=== PATIENT | female | born 1995 | race Caucasian/White ===

== ENCOUNTER 2017-04-05 06:52 | Emergency (ER) | payer BC ==
[2017-04-05] MEDS ORDERED: Sodium Chloride 0.9% 1,000 ML IV ONE (07:28)
[2017-04-05] MEDS ORDERED: Sodium Chloride 0.9% 10 ML Syringe FLUSH PRN (07:28)
[2017-04-05] MEDS ORDERED: Sodium Chloride 0.9% 2.5 ML Syringe FLUSH PRN (07:28)
--- NOTE | 2017-04-05 07:28 | EDM.PDOC ---
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 On March 26 hormone level was 17,719 and on March 30 had fallen to 9,237. She had had a documented ultrasound performed on 03/26 showing an IUP but no pole or yolk sac. According to the patient she was told that she was having a miscarriage and they were going to continue to follow the hormone levels this week and make a decision. Up until this point she has had intermittent cramping and spotting but has not had to use a pad. This morning at 5:15 she started bleeding heavily and she is used to total of 5 pad so far. She still has the cramping. She is not lightheaded or dizzy and has not passed out and has no chest pain fever chills nausea vomiting or upper abdominal pain. She's been eating and drinking normally. She presents due to the change in the bleeding for evaluation. Patient states that she just feels overall fatigued and weak. Review of systems: As per history of present illness and below otherwise all systems reviewed and negative. Past medical history: As per history of present illness and as reviewed below otherwise noncontributory. Surgical history: As per history of present illness and as reviewed below otherwise noncontributory. Social history: No reported history of drug or alcohol abuse. Family history: As per history of present illness and as reviewed below otherwise noncontributory. Physical exam: Gen.: Well-developed well-nourished female who is nontoxic and vital signs have been reviewed by me occluding the tachycardia. HEENT: Atraumatic, normocephalic, negative for conjunctival pallor or scleral icterus, mucous membranes moist, throat clear, neck supple, nontender, trachea midline. Lungs: Clear to auscultation, breath sounds equal bilaterally, chest nontender. Heart: S1S2, regular rhythm and tachycardic rate on my evaluation, no overt murmurs Abdomen: Soft, nondistended, nontender. Negative for masses or hepatosplenomegaly. NABS. Pelvis: Stable nontender. Genitourinary: External genitalia are within normal limits and there is copious amount of clots visualized at the introitus. There is copious blood and clots in the vaginal vault and the cervix is incredibly posterior and to the patient' s left and the os is fingertip. Uterus is age-appropriate around 8 weeks and nontender and there is no adnexal tenderness Rectal: Deferred. Extremities: Atraumatic, negative for cords or calf pain. Neurovascular unremarkable. Neuro: Awake, alert, oriented. Cranial nerves II through XII unremarkable. Cerebellum unremarkable. Motor and sensory unremarkable throughout. Exam nonfocal. Diagnostics: CBC serum quantitative hCG orthostatic vitals pelvic ultrasound Patient has a documented O+ blood type on March 2016 in our computer Therapeutics: IV fluids On orthostatics the patient's heart rate did go up significantly with position change from supine to standing the blood pressure did not change. 0945: Patient has had significantly reduced bleeding since being in the ER and at present got up and walked around in the ER with nursing and she did not have any gross bleeding or oozing of blood and does not feel lightheaded or dizzy and the weakness that she felt earlier is improved. I will discuss this case with OB on-call, Dr. Linda 1004: Case was discussed with Dr. Linda and she is going to review the ultrasound herself and decide if the patient is a candidate for Cytotec. The patient and significant other at bedside are aware of this plan and that we are awaiting the OB MD's plan 1045: Dr. Linda has reviewed the ultrasound and feels that cytotec would be indicated in this patient and requested I put 800 g in the posterior fornix and also place her on doxycycline 100 by mouth twice a day for 7 days. Patient is aware of this care plan and she is also aware that she may have more bleeding before it stops and some cramping and she is to use [id number] medications for this. I advised her on reasons to return to the ED as well as need to contact [facility] tomorrow and check in. Impression: Incomplete stable Definitive disposition and diagnosis as appropriate pending reevaluation and review of above. Lower Abdomen Pain Score (Numeric/FACES): 4 - Related Data Allergies Allergy/AdvReac Type Severity Reaction Status Date / Time Sulfa (Sulfonamide Allergy Rash Verified 04/05/17 07:20 Antibiotics) Home Meds: Home Meds Vit #108/Iron/FA [ One Tablet] 04/05/17 [History] Past Medical History - Past Health History Medical/Surgical History: Denies Medical/Surgical History Social & Family History - Family History HEENT: Reports: Cataract Respiratory: Reports: Asthma Psychiatric: Reports: Depression Endocrine/Metabolic: Reports: Diabetes, type II Oncologic: Reports: Uterine - Tobacco Use Smoking Status *Q: Never Smoker - Caffeine Use Caffeine Use: Reports: Soda - Recreational Drug Use Recreational Drug Use: No ED ROS GENERAL - Review of Systems Review Of Systems: ROS reveals no pertinent complaints other than HPI. ED EXAM, GENERAL - Physical Exam Exam: See Below (See dictation) Course - Vital Signs Last Recorded V/S: Last Vital Signs Temp 36.4 C 04/05/17 07:38 Pulse 82 04/05/17 09:30 Resp 18 04/05/17 09:30 BP 116/68 04/05/17 09:30 Pulse Ox 98 04/05/17 09:30 Orthostatic Blood Pressure [ 113/63 Supine] Orthostatic Blood Pressure [ 116/63 Sitting] Orthostatic Blood Pressure [ 102/48 Standing] - Orders/Labs/Meds Orders: Active Orders 24 hr Category Date Time Status Orthostatic Vital Signs [RC] ASDIRECTED Care 04/05/17 07:55 Active Pelvis Non OB Comp [US] Stat Exams 04/05/17 07:56 Taken Sodium Chloride 0.9% [Saline Flush] Med 04/05/17 07:28 Active 10 ml FLUSH ASDIRECTED PRN Sodium Chloride 0.9% [Saline Flush] Med 04/05/17 07:28 Active 2.5 ml FLUSH ASDIRECTED PRN Saline Lock Insert [OM.PC] Stat Oth 04/05/17 07:28 Ordered Medication Orders Sodium Chloride (Saline Flush) 10 ml FLUSH ASDIRECTED PRN PRN Reason: Keep Vein Open Sodium Chloride (Saline Flush) 2.5 ml FLUSH ASDIRECTED PRN PRN Reason: Keep Vein Open Labs: Laboratory Tests 04/05/17 04/05/17 Range/Units 07:31 07:31 WBC 7.74 (4.0-11.0) K/uL RBC 4.39 (4.30-5.90) M/uL Hgb 12.6 (12.0-16.0) g/dL Hct 37.2 (36.0-46.0) % MCV 84.7 (80.0-98.0) fL MCH 28.7 (27.0-32.0) pg MCHC 33.9 (31.0-37.0) g/dL RDW Std Deviation 41.0 (28.0-62.0) fl RDW Coeff of Leoncio 13 (11.0-15.0) % Plt Count 248 (150-400) K/uL MPV 8.80 (7.40-12.00) fL Neut % (Auto) 61.1 (48.0-80.0) % Lymph % (Auto) 29.7 (16.0-40.0) % [place] % (Auto) 7.2 (0.0-15.0) % Eos % (Auto) 1.6 (0.0-7.0) % Baso % (Auto) 0.4 (0.0-1.5) % Neut # (Auto) 4.7 (1.4-5.7) K/uL Lymph # (Auto) 2.3 (0.6-2.4) K/uL [place] # (Auto) 0.6 (0.0-0.8) K/uL Eos # (Auto) 0.1 (0.0-0.7) K/uL Baso # (Auto) 0.0 (0.0-0.1) K/uL Nucleated RBC % 0.0 /100WBC Nucleated RBCs # 0 K/uL HCG, Quant 1993.4 mIU/mL Meds: Medications Generic Name Dose Route Start Last Admin Trade Name Freq PRN Reason Stop Dose Admin Sodium Chloride 10 ml 04/05/17 07:28 Saline Flush FLUSH ASDIRECTED PRN Keep Vein Open Sodium Chloride 2.5 ml 04/05/17 07:28 Saline Flush FLUSH ASDIRECTED PRN Keep Vein Open Discontinued Medications Generic Name Dose Route Start Last Admin Trade Name Freq PRN Reason Stop Dose Admin Sodium Chloride 1,000 mls @ 999 mls/hr 04/05/17 07:28 04/05/17 07:38 Normal Saline IV 04/05/17 08:28 999 mls/hr STAT ONE Administration Misoprostol 800 mcg 04/05/17 10:45 Cytotec VAG 04/05/17 10:46 ONETIME ONE Departure - Departure Time of Disposition: 10:51 Disposition: Home, Self-Care 01 Condition: Good Clinical Impression: Incomplete - Discharge Information Referrals: PCP,None [Primary Care Provider] - Forms: ED Department Discharge Additional Instructions: The following information is given to patients seen in the emergency department who are being discharged to home. This information is to outline your options for follow-up care. We provide all patients seen in our emergency department with a follow-up referral. The need for follow-up, as well as the timing and circumstances, are variable depending upon the specifics of your emergency department visit. If you don't have a primary care physician on staff, we will provide you with a referral. We always advise you to contact your personal physician following an emergency department visit to inform them of the circumstance of the visit and for follow-up with them and/or the need for any referrals to a consulting specialist. The emergency department will also refer you to a specialist when appropriate. This referral assures that you have the opportunity for followup care with a specialist. All of these measure are taken in an effort to provide you with optimal care, which includes your followup. Under all circumstances we always encourage you to contact your private physician who remains a resource for coordinating your care. When calling for followup care, please make the office aware that this follow-up is from your recent emergency room visit. If for any reason you are refused follow-up, please contact the [facility] emergency department at and ask to speak to the emergency department charge nurse. [facility] Primary care-Women's Health [address] [address] Push fluids rest and expect cramping and bleeding to continue for at least the next 24 hours. You should then see a decrease in both the cramping and bleeding. Please take antiviral Berhane prescribed and also contacted [facility] tomorrow and check in with her. Return to ER as needed as discussed - My Orders Last 24 Hours: My Active Orders 04/05/17 07:28 Sodium Chloride 0.9% [Saline Flush] 10 ml FLUSH ASDIRECTED PRN Sodium Chloride 0.9% [Saline Flush] 2.5 ml FLUSH ASDIRECTED PRN Saline Lock Insert [OM.PC] Stat 04/05/17 07:55 Orthostatic Vital Signs [RC] ASDIRECTED 04/05/17 07:56 Pelvis Non OB Comp [US] Stat - Assessment/Plan Last 24 Hours: My Active Orders 04/05/17 07:28 Sodium Chloride 0.9% [Saline Flush] 10 ml FLUSH ASDIRECTED PRN Sodium Chloride 0.9% [Saline Flush] 2.5 ml FLUSH ASDIRECTED PRN Saline Lock Insert [OM.PC] Stat 04/05/17 07:55 Orthostatic Vital Signs [RC] ASDIRECTED 04/05/17 07:56 Pelvis Non OB Comp [US] Stat
[2017-04-05] MEDS ORDERED: Misoprostol 50 MCG (1/2 of 100 MCG) Tab VAG ONE (10:45)
[2017-04-05] MEDS ORDERED: Misoprostol 200 MCG Tab VAG ONE (11:00)
[2017-04-05 11:35] VITALS: BP 123/67
--- NOTE | 2017-04-06 11:22 | US ---
EXAM DATE: 04/05/17 PATIENT'S AGE: 21 Patient: ALAYNA GARCIA Facility: [place], [place] Site . Site : 1996 Study: US Pelvis [id number] 9:30:27 AM Ordering Physician: Mikayla Galan Final Report: INDICATION: Evaluate for retained products of conception. FINDINGS: An endovaginal pelvic ultrasound shows normal size, contour, echogenicity of the uterus. Thickening of the endometrial stripe measuring 2.6 cm. Small, 7 mm, fluid collection in the endometrial canal which contains internal debris and adjacent increased blood flow. Trace free fluid in the endocervical canal. The ovaries are not well visualized. Trace free fluid in the pelvis. IMPRESSION: Thickening of the endometrial canal which contains a small fluid collection with adjacent increased blood flow. This may represent a small area of retained products of conception. Dictated by Po Urena MD @ 04/05/2017 9:48:24 AM Dictated by: Po Urena MD @ 04/05/2017 09:48:36 (Electronic Signature) Report Signed by Proxy. [facility]
== END 2017-04-05 11:38 | disposition home or self-care (01) ==
LOC: MW.ED 06:52
DX: O03.4 Incomplete spontaneous abortion without complication (principal); Z88.2 Allergy status to sulfonamides
CPT/HCPCS: 36415; 76856; 84702; 85025; 96360; 99284; A9270; J7040

== ENCOUNTER 2020-08-26 05:10 | Inpatient (IN) | payer BC ==
[2020-08-26] MEDS ORDERED: Tranexamic Acid 1,000 MG in Sodium Chloride 0.9% 100 ML IV PRN (05:43)
[2020-08-26] MEDS ORDERED: Ampicillin 2 GM in Sodium Chloride 0.9% 100 ML IV ONE (05:43)
[2020-08-26] MEDS ORDERED: Nalbuphine 10 MG/1 ML Vial IVPUSH PRN (05:43)
[2020-08-26] MEDS ORDERED: Sodium Chloride 0.9% 10 ML SDV IV PRN (05:43)
[2020-08-26] MEDS ORDERED: Sodium Chloride 0.9% 10 ML Syringe FLUSH PRN (05:43)
[2020-08-26] MEDS ORDERED: Water For Irrigation,Sterile 1,000 ML Container IRR PRN (05:43)
[2020-08-26] MEDS ORDERED: Methylergonovine 0.2 MG/1 ML Amp IM PRN (05:43)
[2020-08-26] MEDS ORDERED: Butorphanol 1 MG/ML SDV IVPUSH PRN (05:43)
[2020-08-26] MEDS ORDERED: Misoprostol 200 MCG Tab PO PRN (05:43)
[2020-08-26] MEDS ORDERED: Carboprost Tromethamine 250 MCG/1 ML Amp IM PRN (05:43)
[2020-08-26] MEDS ORDERED: Sodium Chloride 0.9% 2.5 ML Syringe FLUSH PRN (05:43)
[2020-08-26] MEDS ORDERED: Lidocaine 1% 50 ML MDV INJECT PRN (05:43)
[2020-08-26] MEDS ORDERED: Oxytocin/0.9 % Sodium Chloride 30 UNIT/500 ML BAG IV SCH ×3 (05:45→06:15)
[2020-08-26] MEDS ORDERED: Lactated Ringers 1,000 ML IV SCH (05:45)
[2020-08-26] MEDS ORDERED: Terbutaline 1 MG/ML SDV SUBCUT PRN (05:48)
[2020-08-26] MEDS ORDERED: Misoprostol 25 MCG (1/4 of 100 MCG) Tab VAG PRN ×2 (05:48)
[2020-08-26] MEDS ORDERED: Misoprostol 25 MCG (1/4 of 100 MCG) Tab PO PRN (06:04)
--- NOTE | 2020-08-26 08:02 | PCM.LDHP ---
L&D History of Present Illness - General Date of Service: 08/26/20 Admit Problem/Dx: Patient Status Order with Admit Dx/Problem 08/26/20 05:43 Patient Status [ADT] Routine Admission Diagnosis/Problem Admission Diagnosis/Problem 08/26/20 07:47 Malinda is a 25 yo at 41+0 weeks gestation (MARSHALL(LMP) 08/19/2020) that presents today for elective (now post-dates) IOL. Patient has not complaints or concerns at this time except irregular BHs contractions. O pos, Ab screen neg, RI, GBS positive. Ax: Sulfa drugs. Denies painful contractions, vaginal bleeding, LOF. Reports adequate movement. H/O obesity (1-hr GTT not collected, declined); insufficient care between 17-33 weeks (due to COVID per patient report); GBS positive (declines prophylactic antibiotics, extensive counseling completed). Patient has no other complaints or concerns at this time, desires to continue with IOL at this time. RBAs of IOL discussed and consents signed 08/24/2020; discussed and confirmed once again today. Source of Information: Patient History Limitations: Reports: No Limitations - Related Data Allergies/Adverse Reactions: Allergies Allergy/AdvReac Type Severity Reaction Status Date / Time Sulfa (Sulfonamide Allergy Rash Verified 05/07/18 06:00 Antibiotics) Home Medications: Home Meds Mv-Mn/Iron/FA/Herbal/Digestive [ One Tablet] 1 tab PO DAILY 04/05/17 [History] L.acidoph,Paracasei, B.lactis [Probiotic] 1 cap PO DAILY 05/07/18 [History] Past Medical History - Past Health History Medical/Surgical History: Denies Medical/Surgical History HEENT History: Reports: None Cardiovascular History: Reports: None Respiratory History: Reports: Asthma (Childhood asthma, resolved) Gastrointestinal History: Reports: None Genitourinary History: Reports: None 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: , Spontaneous : 4 Para: 2 LMP (Approximate): Musculoskeletal History: Reports: None Neurological History: Reports: None Psychiatric History: Reports: Anxiety Endocrine/Metabolic History: Reports: Obesity/BMI 30+ Hematologic History: Reports: None Immunologic History: Reports: None Oncologic (Cancer) History: Reports: None Dermatologic History: Reports: None - Infectious Disease History Infectious Disease History: Reports: None - Past Surgical History Head Surgeries/Procedures: Reports: None - Past Imaging History Past Imaging History: Reports: None Social & Family History - Family History HEENT: Reports: Cataract Cardiac: Reports: Hypertension Respiratory: Reports: Asthma OBGYN: Reports: Psychiatric: Reports: Depression Endocrine/Metabolic: Reports: Diabetes, type II Oncologic: Reports: Uterine Other Oncologic Family History: stomach - Tobacco Use Tobacco Use Status *Q: Never Tobacco User - Caffeine Use Caffeine Use: Reports: Soda - Alcohol Use Alcohol Use History: No - Recreational Drug Use Recreational Drug Use: No H&P Review of Systems - Review of Systems: Review Of Systems: Comprehensive ROS is negative, except as noted in HPI. General: Reports: No Symptoms HEENT: Reports: No Symptoms Pulmonary: Reports: No Symptoms Cardiovascular: Reports: No Symptoms Gastrointestinal: Reports: No Symptoms Genitourinary: Reports: No Symptoms Musculoskeletal: Reports: No Symptoms Skin: Reports: No Symptoms Psychiatric: Reports: No Symptoms Neurological: Reports: No Symptoms Hematologic/Lymphatic: Reports: No Symptoms Immunologic: Reports: No Symptoms L&D Exam - Exam Exam: See Below - Vital Signs Vital Signs: BP 117/67, HR 83, RR 16, T 98.3 Weight: 276 lb 3 oz - OB Specific Fundal Height In cm: 42 Contraction Duration (sec): 60-70 Contraction Frequency (min): occasional Contraction Intensity: Mild Movement: Active Heart Tones: Present Heart Tones per Min: 125 Heart Rate (FHR) Variability: Moderate (6-25 bmp) Presentation: Vertex (Vertex via TAUS in office 08/24/2020, SVE today) - Evans Score Evans Score Cervix Position: Midposition Evans Score Consistency: Soft Evans Score Effacement: 51-70% Evans Score Dilation: 3-4 cm Evans Score 's Station: -2 Evans Score Total: 8 - Exam General: Alert, Oriented, Cooperative HEENT: PERRLA, Conjunctiva Clear, EACs Clear, EOMI, Hearing Intact, Mucosa Moist & [place], Nares Patent, Normal Nasal Septum, Posterior Pharynx Clear, TMs Clear Neck: Supple, Trachea Midline Lungs: Clear to Auscultation, Normal Respiratory Effort Cardiovascular: Regular Rate, Regular Rhythm GI/Abdominal Exam: Normal Bowel Sounds, Soft, Non-Tender, No Organomegaly, No Distention Rectal Exam: Deferred Genitourinary: Normal external exam, Normal bimanual exam, Enlarged uterus ( uterus) Back Exam: Normal Inspection, Full Range of Motion Extremities: Normal Inspection, Normal Range of Motion, Non-Tender, No Pedal Edema, Normal Capillary Refill Skin: Warm, Dry, Intact Neurological: Cranial Nerves Intact, Reflexes Equal Bilateral Psychiatric: Alert, Normal Affect, Normal Mood - Patient Data Lab Results Last 24 hrs: Laboratory Results - last 24 hr 08/26/20 08/26/20 Range/Units 06:29 06:29 WBC 7.94 (4.0-11.0) K/uL RBC 4.02 L (4.30-5.90) M/uL Hgb 11.4 L (12.0-16.0) g/dL Hct 34.8 L (36.0-46.0) % MCV 86.6 (80.0-98.0) fL MCH 28.4 (27.0-32.0) pg MCHC 32.8 (31.0-37.0) g/dL RDW Std Deviation 50.9 (28.0-62.0) fl RDW Coeff of Leoncio 16 H (11.0-15.0) % Plt Count 257 (150-400) K/uL MPV 9.40 (7.40-12.00) fL Nucleated RBC % 0.0 /100WBC Nucleated RBCs # 0 K/uL Blood Type O POSITIVE Antibody Screen NEGATIVE Result Diagrams: 08/26/20 06:29 - Problem List (1) Encounter for induction of labor SNOMED Code(s): 795522935 ICD Code: Z34.90 - ENCNTR FOR SUPRVSN OF NORMAL , UNSP, UNSP TRIMESTER Status: Acute Priority: High Current Visit: Yes (2) 41 weeks gestation of SNOMED Code(s): 91447556 ICD Code: Z3A.41 - 41 WEEKS GESTATION OF Status: Acute Priority: High Current Visit: Yes Problem List Initiated/Reviewed/Updated: Yes Orders Last 24hrs: Active Orders 24 hr Category Date Time Status Patient Status [ADT] Routine ADT 08/26/20 05:43 Active Bedrest Bathroom Privileges [RC] ASDIRECTED Care 08/26/20 05:49 Active Communication Order [RC] ASDIRECTED Care 08/26/20 05:49 Active Communication Order [RC] ASDIRECTED Care 08/26/20 05:49 Active Communication Order [RC] ASDIRECTED Care 08/26/20 05:49 Active Heart Tones [RC] CONTINUOUS Care 08/26/20 05:43 Active Non Stress Test [RC] PER UNIT ROUTINE Care 08/26/20 05:43 Active May Shower [RC] ASDIRECTED Care 08/26/20 05:43 Active Notify Provider [RC] PRN Care 08/26/20 05:43 Active Notify Provider [RC] PRN Care 08/26/20 05:49 Active Notify Provider [RC] PRN Care 08/26/20 05:49 Active Notify Provider [RC] STAT Care 08/26/20 05:49 Active Oxygen Therapy [RC] ASDIRECTED Care 08/26/20 05:49 Active Up ad Jelly [RC] ASDIRECTED Care 08/26/20 05:43 Active Vaginal Exam [RC] PRN Care 08/26/20 05:43 Active Vaginal Exam [RC] PRN Care 08/26/20 05:49 Active Vital Signs [RC] PER UNIT ROUTINE Care 08/26/20 05:43 Active Vital Signs [RC] PER UNIT ROUTINE Care 08/26/20 05:49 Active RPR (SYPHILIS SERO) W/ RFLX [REF] Routine Lab 08/26/20 06:29 Received Ampicillin 1 gm Med 08/26/20 10:00 Active Sodium Chloride 0.9% [Normal Saline] 50 ml IV Q4H Butorphanol [Stadol] Med 08/26/20 05:43 Active 1 mg IVPUSH Q1H PRN Carboprost Tromethamine [Hemabate DS] Med 08/26/20 05:43 Active 250 mcg IM ASDIRECTED PRN Lactated Ringers [Ringers, Lactated] 1,000 ml Med 08/26/20 05:45 Active IV ASDIRECTED Lidocaine 1% [Xylocaine 1%] Med 08/26/20 05:43 Active 50 ml INJECT ONETIME PRN Methylergonovine [Methergine] Med 08/26/20 05:43 Active 0.2 mg IM ASDIRECTED PRN Nalbuphine [Nubain] Med 08/26/20 05:43 Active 10 mg IVPUSH Q1H PRN Oxytocin/0.9 % Sodium Chloride [Oxytocin 30 Unit/500 ML Med 08/26/20 05:45 Active -NS] 30 unit in 500 ml IV TITRATE Oxytocin/0.9 % Sodium Chloride [Oxytocin 30 Unit/500 ML Med 08/26/20 06:00 Act lila -NS] 30 unit in 500 ml IV TITRATE Oxytocin/0.9 % Sodium Chloride [Oxytocin 30 Unit/500 ML Med 08/26/20 06:15 Active -NS] 30 unit in 500 ml IV TITRATE Sodium Chloride 0.9% [Normal Saline] Med 08/26/20 05:43 Active 10 ml IV ASDIRECTED PRN Sodium Chloride 0.9% [Saline Flush] Med 08/26/20 05:43 Active 10 ml FLUSH ASDIRECTED PRN Sodium Chloride 0.9% [Saline Flush] Med 08/26/20 05:43 Active 2.5 ml FLUSH ASDIRECTED PRN Terbutaline [Brethine] Med 08/26/20 05:48 Active 0.25 mg SUBCUT ASDIRECTED PRN Tranexamic Acid [Cyklokapron] 1,000 mg Med 08/26/20 05:43 Active Sodium Chloride 0.9% [Normal Saline] 100 ml IV ONETIME Water For Irrigation,Sterile [Sterile Water for Med 08/26/20 05:43 Active Irrigation] 1,000 ml IRR ASDIRECTED PRN miSOPROStoL [Cytotec] Med 08/26/20 05:43 Active 200 mcg PO ONETIME PRN miSOPROStoL [Cytotec] Med 08/26/20 06:04 Active 25 mcg PO Q4H PRN miSOPROStoL [Cytotec] Med 08/26/20 05:48 Active 25 mcg VAG ONETIME PRN miSOPROStoL [Cytotec] Med 08/26/20 05:48 Active 25 mcg VAG Q4H PRN Scalp Electrode [WOMSER] Per Unit Routine Oth 08/26/20 05:43 Ordered Medication Administration Instruction [OM.PC] Q3H Oth 08/26/20 06:00 Ordered Peripheral IV Insertion Adult [OM.PC] Routine Oth 08/26/20 05:43 Ordered Resuscitation Status Routine Resus Stat 08/26/20 05:43 Ordered Medication Orders Butorphanol Tartrate (Stadol) 1 mg IVPUSH Q1H PRN PRN Reason: Pain Carboprost Tromethamine (Hemabate Ds) 250 mcg IM ASDIRECTED PRN PRN Reason: Post Hemorrhage Oxytocin/Sodium Chloride (Oxytocin 30 Unit/500 Ml-Ns) 30 unit in 500 mls @ 999 mls/hr IV TITRATE ANGIE Tranexamic Acid 1,000 mg/ (Sodium Chloride) 110 mls @ 660 mls/hr IV ONETIME PRN PRN Reason: Bleeding Lactated Ringer's (Ringers, Lactated) 1,000 mls @ 150 mls/hr IV ASDIRECTED ANGIE Ampicillin Sodium 1 gm/ Sodium (Chloride) 50 mls @ 100 mls/hr IV Q4H ANGIE Oxytocin/Sodium Chloride (Oxytocin 30 Unit/500 Ml-Ns) 30 unit in 500 mls @ 2 mls/hr IV TITRATE ANGIE; Protocol Oxytocin/Sodium Chloride (Oxytocin 30 Unit/500 Ml-Ns) 30 unit in 500 mls @ 2 mls/hr IV TITRATE ANGIE; Protocol Lidocaine HCl (Xylocaine 1%) 50 ml INJECT ONETIME PRN PRN Reason: Laceration repair Methylergonovine Maleate (Methergine) 0.2 mg IM ASDIRECTED PRN PRN Reason: Post Hemorrhage Misoprostol (Cytotec) 200 mcg PO ONETIME PRN PRN Reason: Post Hemorrhage Misoprostol (Cytotec) 25 mcg VAG ONETIME PRN PRN Reason: Cervical Ripening Misoprostol (Cytotec) 25 mcg VAG Q4H PRN PRN Reason: Cervical Ripening Misoprostol (Cytotec) 25 mcg PO Q4H PRN PRN Reason: Cervical Ripening Nalbuphine HCl (Nubain) 10 mg IVPUSH Q1H PRN PRN Reason: Pain (severe 7-10) Sodium Chloride (Saline Flush) 10 ml FLUSH ASDIRECTED PRN PRN Reason: Keep Vein Open Sodium Chloride (Saline Flush) 2.5 ml FLUSH ASDIRECTED PRN PRN Reason: Keep Vein Open Sodium Chloride (Normal Saline) 10 ml IV ASDIRECTED PRN PRN Reason: IV Use Sterile Water (Sterile Water For Irrigation) 1,000 ml IRR ASDIRECTED PRN PRN Reason: delivery Terbutaline Sulfate (Brethine) 0.25 mg SUBCUT ASDIRECTED PRN PRN Reason: Tacysystole Assessment/Plan Comment:: Admit for observation to L&D today in anticipation of . Desire AROM IOL today. RBAs of AROM vs prostaglandin vs pitocin IOL discussed. Patient desires AROM at this time for IOL. GBS positive. Ax: Sulfa drugs. Patient continues to decline GBS prophylactic antibiotics, extensive and intrapartum counseling completed. Warning S/Ss, when to re-visit antibiotic prophylaxis including maternal or tachycardia, maternal fever, NRFHTs, or prolongs ROM >/=18 hours discussed. Patient verbalizes understanding and is agreeable with POC. Plan to monitor maternal temperature q 1-2 hrs, limit SVEs to q 4-6 hours or sooner if needed. Plan for pitocin augmentation in 4-6 hours S/P AROM if needed. VSS, afebrile. NST Cat I, reactive and reassuring. SVE 3/50-70/-2, soft, midposition, vertex. AROM completed at 0715, scant to small, clear fluid. Plan to obtain reactive NST, then patient may ambulate intermittently with intermittent monitoring per policy. May receive epidural if desired >/= 5 cm. May have regular diet as tolerated. See new orders. Dr. Simmons notified and agreeable with POC, plans to be present on unit during delivery or sooner if problems arise.
[2020-08-26] MEDS: Ampicillin 1 GM in Sodium Chloride 0.9% 50 ML IV SCH ×2 (10:00→14:00)
--- NOTE | 2020-08-26 13:47 | PCM.DEL ---
L & D Note - General Info Date of Service: 08/26/20 Mother's Due Date: 08/19/20 - Delivery Note Labor: Induced by ARM Delivery Outcome: Livebirth Infant Delivery Method: Spontaneous Vaginal Delivery-Single Delivery Mode: Spontaneous Presentation: Right Occiput Anterior (FELICITY) Nuchal Cord: Present (Somersaulted through) Anesthesia Type: None Amniotic Fluid Description: Clear Episiotomy Type: None Laceration: 1st Degree (Oozing, not repaired per patient request, iced and pressure applied) Placenta: Intact, Spontaneous Cord: 3 Vessels Resuscitation Needed: No Kirby: Bulb Syringe, Stimulated, Warmed, [place] Used Score 1 min: 8 Score 5 min: 9 Second Stage Interventions: Reports: Encouragement Given, Pushing Effectively, Pushing Involuntarily, Pushing, Feet in Foot Rests Delivery Comments (Free Text/Narrative):: Malinda is a 25 yo s/p uncomplicated of viable, post-term NBF at 41+0 weeks gestation (MARSHALL(LMP) 08/19/2020) after elective (now post-dates) IOL with AROM induction. O pos, Ab screen neg, RI, GBS positive. Ax: Sulfa drugs. Declined prophylactic antibiotics, extensive and intrapartum counseling completed; low-risk due to lack of other factors, Tmax: 98.6F. Pain well controlled with comfort measures, unmedicated. Dr. Simmons and development educator on stand-by in unit. NBF delivered FELICITY with tight nuchal, somersaulted through with next push and of body, terminal meconium. NBF placed to maternal abdomen, warmed, dried, stimulated, weak cries thereafter. Umbilical cord clamped x 2, cut by FOB ~1-2 min after . Pitocin bolus commenced for active third stage management. Placenta delivered intact, Sch[place], 3VC; incidental cyst x3 ~1 cm in diameter each and calcifications noted on placenta upon inspection, consistent for gestational age. Perineum inspected, small 1st degree perineal laceration, somewhat oozing after pressure applied noted, not repaired per patient request, ice and compress (high-seated position). If oozing not resolved in 1 hour, plan to repair with local lidocaine analgesia. EBL ~400 ml. Apgars 8/9. NBF weight pending. VSS, afebrile. Induction Criteria - Evans Score Evans Score Dilation: 3-4 cm Evans Score Effacement: 60-70% Evans Score 's Station: -2 Evans Score Consistency: Soft Evans Score Cervix Position: Midposition Evans Score Total: 8 Evans Score Presenting Part: Reports: Cephalic - Induction Gestational Age >/= 39 wks: Yes Estimated Pelvis: Reports: Adequate Reassuring Monitoring Strip: Yes Absence of Tachy Systole: Yes - General Info Date of Service: 08/26/20 Admission Dx/Problem (Free Text): Patient Status Order with Admit Dx/Problem 08/26/20 05:43 Patient Status [ADT] Routine Admission Diagnosis/Problem Admission Diagnosis/Problem 08/26/20 07:47 Malinda is a 25 yo at 41+0 weeks gestation (MARSHALL(LMP) 08/19/2020) that presents today for elective (now post-dates) IOL. Patient has not complaints or concerns at this time except irregular BHs contractions. O pos, Ab screen neg, RI, GBS positive. Ax: Sulfa drugs. Denies painful contractions, vaginal bleeding, LOF. Reports adequate movement. H/O obesity (1-hr GTT not collected, declined); insufficient care between 17-33 weeks (due to COVID per patient report); GBS positive (declines prophylactic antibiotics, extensive counseling completed). Patient has no other complaints or concerns at this time, desires to continue with IOL at this time. RBAs of IOL discussed and consents signed 08/24/2020; discussed and confirmed once again today. Functional Status: Reports: Pain Controlled, Tolerating Diet, Ambulating, Urinating - Review of Systems General: Reports: No Symptoms HEENT: Reports: No Symptoms Pulmonary: Reports: No Symptoms Cardiovascular: Reports: No Symptoms Gastrointestinal: Reports: No Symptoms Genitourinary: Reports: No Symptoms Musculoskeletal: Reports: No Symptoms Skin: Reports: No Symptoms Neurological: Reports: No Symptoms Psychiatric: Reports: No Symptoms - Patient Data Vitals - Most Recent: VSS, afebrile. See flowsheet. Weight - Most Recent: 276 lb 3 oz Lab Results Last 24 Hours: Laboratory Results - last 24 hr 08/26/20 08/26/20 08/26/20 Range/Units 06:29 06:29 06:29 WBC 7.94 (4.0-11.0) K/uL RBC 4.02 L (4.30-5.90) M/uL Hgb 11.4 L (12.0-16.0) g/dL Hct 34.8 L (36.0-46.0) % MCV 86.6 (80.0-98.0) fL MCH 28.4 (27.0-32.0) pg MCHC 32.8 (31.0-37.0) g/dL RDW Std Deviation 50.9 (28.0-62.0) fl RDW Coeff of Leoncio 16 H (11.0-15.0) % Plt Count 257 (150-400) K/uL MPV 9.40 (7.40-12.00) fL Nucleated RBC % 0.0 /100WBC Nucleated RBCs # 0 K/uL Glucose 96 (74-106) mg/dL Blood Type O POSITIVE Antibody Screen NEGATIVE Med Orders - Current: Current Medications Butorphanol Tartrate (Stadol) 1 mg IVPUSH Q1H PRN PRN Reason: Pain Carboprost Tromethamine (Hemabate Ds) 250 mcg IM ASDIRECTED PRN PRN Reason: Post Hemorrhage Oxytocin/Sodium Chloride (Oxytocin 30 Unit/500 Ml-Ns) 30 unit in 500 mls @ 999 mls/hr IV TITRATE ANGIE Tranexamic Acid 1,000 mg/ (Sodium Chloride) 110 mls @ 660 mls/hr IV ONETIME PRN PRN Reason: Bleeding Lactated Ringer's (Ringers, Lactated) 1,000 mls @ 150 mls/hr IV ASDIRECTED ANGIE Ampicillin Sodium 1 gm/ Sodium (Chloride) 50 mls @ 100 mls/hr IV Q4H ANGIE Oxytocin/Sodium Chloride (Oxytocin 30 Unit/500 Ml-Ns) 30 unit in 500 mls @ 2 mls/hr IV TITRATE ANGIE; Protocol Oxytocin/Sodium Chloride (Oxytocin 30 Unit/500 Ml-Ns) 30 unit in 500 mls @ 2 mls/hr IV TITRATE ANGIE; Protocol Lidocaine HCl (Xylocaine 1%) 50 ml INJECT ONETIME PRN PRN Reason: Laceration repair Methylergonovine Maleate (Methergine) 0.2 mg IM ASDIRECTED PRN PRN Reason: Post Hemorrhage Misoprostol (Cytotec) 200 mcg PO ONETIME PRN PRN Reason: Post Hemorrhage Misoprostol (Cytotec) 25 mcg VAG ONETIME PRN PRN Reason: Cervical Ripening Misoprostol (Cytotec) 25 mcg VAG Q4H PRN PRN Reason: Cervical Ripening Misoprostol (Cytotec) 25 mcg PO Q4H PRN PRN Reason: Cervical Ripening Nalbuphine HCl (Nubain) 10 mg IVPUSH Q1H PRN PRN Reason: Pain (severe 7-10) Sodium Chloride (Saline Flush) 10 ml FLUSH ASDIRECTED PRN PRN Reason: Keep Vein Open Sodium Chloride (Saline Flush) 2.5 ml FLUSH ASDIRECTED PRN PRN Reason: Keep Vein Open Sodium Chloride (Normal Saline) 10 ml IV ASDIRECTED PRN PRN Reason: IV Use Sterile Water (Sterile Water For Irrigation) 1,000 ml IRR ASDIRECTED PRN PRN Reason: delivery Terbutaline Sulfate (Brethine) 0.25 mg SUBCUT ASDIRECTED PRN PRN Reason: Tacysystole Discontinued Medications Ampicillin Sodium 2 gm/ Sodium (Chloride) 100 mls @ 200 mls/hr IV ONETIME ONE Stop: 08/26/20 06:12 Last Admin: 08/26/20 07:57 Dose: Not Given Documented by: - Exam General: Alert, Oriented, Cooperative, No Acute Distress HEENT: Pupils Equal, Pupils Reactive, Mucous Membr. Moist/[place] Neck: Supple Lungs: Clear to Auscultation, Normal Respiratory Effort Cardiovascular: Regular Rate, Regular Rhythm GI/Abdominal Exam: Normal Bowel Sounds, Soft, Non-Tender, No Organomegaly, No Distention (Female) Exam: Normal External Exam, Enlarged Uterus ( uterus, firm U+1), Vaginal Bleeding (Small to moderate rubra lochia, no clots) Back Exam: Normal Inspection, Full Range of Motion Extremities: Normal Inspection, Normal Range of Motion, Non-Tender, No Pedal Edema, Normal Capillary Refill Skin: Warm, Dry, Intact Wound/Incisions: Drainage (1st degree laceration: Scant to small blood, oozing.) Neurological: No New Focal Deficit Psy/Mental Status: Alert, Normal Affect, Normal Mood - Problem List & Annotations (1) (normal spontaneous vaginal delivery) SNOMED Code(s): 52831990, 868994867 Code(s): O80 - ENCOUNTER FOR FULL-TERM UNCOMPLICATED DELIVERY Status: Acute Priority: High Current Visit: Yes (2) Lactating mother SNOMED Code(s): 914733990, 857935742 Code(s): Z39.1 - ENCOUNTER FOR CARE AND EXAMINATION OF LACTATING MOTHER Status: Acute Priority: High Current Visit: Yes - Problem List Review Problem List Initiated/Reviewed/Updated: Yes - My Orders Last 24 Hours: My Active Orders 08/26/20 05:48 Terbutaline [Brethine] 0.25 mg SUBCUT ASDIRECTED PRN miSOPROStoL [Cytotec] 25 mcg VAG ONETIME PRN miSOPROStoL [Cytotec] 25 mcg VAG Q4H PRN 08/26/20 05:49 Bedrest Bathroom Privileges [RC] ASDIRECTED Notify Provider [RC] PRN Notify Provider [RC] PRN Notify Provider [RC] STAT Vital Signs [RC] PER UNIT ROUTINE 08/26/20 06:00 Oxytocin/0.9 % Sodium Chloride [Oxytocin 30 Unit/500 ML-NS] 30 unit in 500 ml IV TITRATE Medication Administration Instruction [OM.PC] Q3H 08/26/20 06:04 miSOPROStoL [Cytotec] 25 mcg PO Q4H PRN 08/26/20 06:15 Oxytocin/0.9 % Sodium Chloride [Oxytocin 30 Unit/500 ML-NS] 30 unit in 500 ml IV TITRATE - Plan Plan:: Admit inpatient to unit s/p uncomplicated of post-dates NBF following AROM IOL. GBS positive. Ax: Sulfa drugs. GBS prophylactic antibiotics not administered due to patient declining, no other exacerbating risk factors, intrapartum VSS, afebrile, Tmax 98.6 F, maternal HR 80s-90s, FHR 130s-150s, AROMd ~6 hrs 5 min, clear, non-odorous fluid. May ambulate with assistance, plan to ambulate at least 3-5 times per day. If patient has not voided in 4-6 hours, plan to bladder scan and notify provider. Plan to EBF, may consult revenue cycle consultant if needed or desired. Plan to collect CBC with auto diff in am. See new orders. Dr. Simmons notified and agreeable with POC.
[2020-08-26] MEDS ORDERED: Docusate Sodium 100 MG Cap PO PRN (14:15)
[2020-08-26] MEDS ORDERED: Benzocaine/Menthol 20%-0.5% Spray 78 GM Cannister TOP PRN (14:15)
[2020-08-26] MEDS ORDERED: Witch Hazel Medicated Pads 40/Jar TOP PRN (14:15)
[2020-08-26] MEDS ORDERED: Lanolin 100% Cream 7 GM Tube TOP PRN (14:15)
[2020-08-26] MEDS ORDERED: Bisacodyl 10 MG Supp RECTAL PRN (14:15)
[2020-08-26] MEDS ORDERED: Acetaminophen 500 MG Tab PO PRN ×2 (14:15)
[2020-08-26] MEDS ORDERED: Ibuprofen 400 MG Tab PO PRN (14:15)
[2020-08-26] MEDS ORDERED: oxyCODONE 5 MG Tab PO PRN (14:15)
[2020-08-26] MEDS: Ibuprofen 800 MG Tab PO PRN ×2 (14:57→21:11)
[2020-08-27] MEDS: Ibuprofen 800 MG Tab PO PRN ×3 (03:04→15:57)
--- NOTE | 2020-08-27 08:25 | PCM.PNPP ---
- General Info Date of Service: 08/27/20 Admission Dx/Problem (Free Text): Patient Status Order with Admit Dx/Problem 08/26/20 05:43 Patient Status [ADT] Routine Admission Diagnosis/Problem Admission Diagnosis/Problem 08/26/20 07:47 Malinda is a 25 yo PPD 0 S/P uncomplicated of viable post-dates NBF at 41+0 weeks gestation (MARSHALL(LMP) 08/19/2020) following elective (now post-dates) AROM IOL. O pos, Ab screen neg, RI, GBS positive. Ax: Sulfa drugs. GBS prophylactic antibiotics not administered due to patient declining, no other exacerbating risk factors, intrapartum VSS, afebrile, Tmax 98.6 F, maternal HR 80s-90s, FHR 130s-150s, AROMd ~6 hrs 5 min, clear, non-odorous fluid. VSS, afebrile. easily and without issues, LGA, glucose monitoring continued. Eating, hydrating, ambulating, and urinating independently and without issue. 1st degree perineal laceration noted, not repaired, declines inspection today. Uterus firm, @U. Moderate rubra lochia, few small clots. Mild to moderate uterine cramping somewhat relieved with ibuprofen and acetaminophen. H/O obesity (1-hr GTT not collected, declined); insufficient care between 17-33 weeks (due to COVID per patient report ); GBS positive (declined prophylaxis). Patient has no other questions or concerns at this time. Functional Status: Reports: Pain Controlled, Tolerating Diet, Ambulating, Ur inating - Review of Systems General: Reports: No Symptoms HEENT: Reports: No Symptoms Pulmonary: Reports: No Symptoms Cardiovascular: Reports: No Symptoms Gastrointestinal: Reports: No Symptoms Genitourinary: Reports: No Symptoms Musculoskeletal: Reports: No Symptoms Skin: Reports: No Symptoms Neurological: Reports: No Symptoms Psychiatric: Reports: No Symptoms - General Info Date of Service: 08/27/20 - Patient Data Vital Signs - Most Recent: Last Vital Signs Temp 98.1 F 08/27/20 03:14 Pulse 78 08/26/20 19:50 Resp 15 08/27/20 03:14 BP 114/66 08/27/20 03:14 Pulse Ox 99 08/27/20 03:14 Weight - Most Recent: 276 lb 3 oz Lab Results - Last 24 Hours: Laboratory Results - last 24 hr 08/26/20 08/27/20 Range/Units 06:29 07:00 WBC 11.87 H (4.0-11.0) K/uL RBC 3.78 L (4.30-5.90) M/uL Hgb 10.8 L (12.0-16.0) g/dL Hct 32.9 L (36.0-46.0) % MCV 87.0 (80.0-98.0) fL MCH 28.6 (27.0-32.0) pg MCHC 32.8 (31.0-37.0) g/dL RDW Std Deviation 51.7 (28.0-62.0) fl RDW Coeff of Leoncio 16 H (11.0-15.0) % Plt Count 237 (150-400) K/uL MPV 9.40 (7.40-12.00) fL Neut % (Auto) 65.6 (48.0-80.0) % Lymph % (Auto) 25.1 (16.0-40.0) % [place] % (Auto) 7.8 (0.0-15.0) % Eos % (Auto) 1.3 (0.0-7.0) % Baso % (Auto) 0.2 (0.0-1.5) % Neut # (Auto) 7.8 H (1.4-5.7) K/uL Lymph # (Auto) 3.0 H (0.6-2.4) K/uL [place] # (Auto) 0.9 H (0.0-0.8) K/uL Eos # (Auto) 0.2 (0.0-0.7) K/uL Baso # (Auto) 0.0 (0.0-0.1) K/uL Nucleated RBC % 0.0 /100WBC Nucleated RBCs # 0 K/uL Glucose 96 (74-106) mg/dL Med Orders - Current: Current Medications Acetaminophen (Tylenol Extra Strength) 500 mg PO Q4H PRN PRN Reason: Pain Acetaminophen (Tylenol Extra Strength) 1,000 mg PO Q4H PRN PRN Reason: Pain Benzocaine/Menthol (Dermoplast Pain Relief 20%-0.5% [place]) 78 gm TOP ASDIRECTED PRN PRN Reason: Perineal Comfort Measure Bisacodyl (Dulcolax) 10 mg RECTAL ONETIME PRN PRN Reason: Constipation Docusate Sodium (Colace) 100 mg PO BID PRN PRN Reason: Constipation Emollient Ointment (Lansinoh Hpa) 0 gm TOP ASDIRECTED PRN PRN Reason: Sore Nipples Ibuprofen (Motrin) 400 mg PO Q4H PRN PRN Reason: Pain Ibuprofen (Motrin) 800 mg PO Q6H PRN PRN Reason: Pain Last Admin: 08/27/20 03:04 Dose: 800 mg Documented by: Oxycodone HCl (Oxycodone) 5 mg PO Q2H PRN PRN Reason: Pain Witch Lauren (Tucks) 1 pad TOP ASDIRECTED PRN PRN Reason: comfort care Discontinued Medications Butorphanol Tartrate (Stadol) 1 mg IVPUSH Q1H PRN PRN Reason: Pain Carboprost Tromethamine (Hemabate Ds) 250 mcg IM ASDIRECTED PRN PRN Reason: Post Hemorrhage Oxytocin/Sodium Chloride (Oxytocin 30 Unit/500 Ml-Ns) 30 unit in 500 mls @ 999 mls/hr IV TITRATE [facility] Last Admin: 08/26/20 13:21 Dose: 999 mls/hr Documented by: Tranexamic Acid 1,000 mg/ (Sodium Chloride) 110 mls @ 660 mls/hr IV ONETIME PRN PRN Reason: Bleeding Ampicillin Sodium 2 gm/ Sodium (Chloride) 100 mls @ 200 mls/hr IV ONETIME ONE Stop: 08/26/20 06:12 Last Admin: 08/26/20 07:57 Dose: Not Given Documented by: Lactated Ringer's (Ringers, Lactated) 1,000 mls @ 150 mls/hr IV ASDIRECTED ANGIE Ampicillin Sodium 1 gm/ Sodium (Chloride) 50 mls @ 100 mls/hr IV Q4H [facility] Last Admin: 08/26/20 14:00 Dose: Not Given Documented by: Oxytocin/Sodium Chloride (Oxytocin 30 Unit/500 Ml-Ns) 30 unit in 500 mls @ 2 mls/hr IV TITRATE [facility]; Protocol Oxytocin/Sodium Chloride (Oxytocin 30 Unit/500 Ml-Ns) 30 unit in 500 mls @ 2 mls/hr IV TITRATE ANGIE; Protocol Lidocaine HCl (Xylocaine 1%) 50 ml INJECT ONETIME PRN PRN Reason: Laceration repair Methylergonovine Maleate (Methergine) 0.2 mg IM ASDIRECTED PRN PRN Reason: Post Hemorrhage Misoprostol (Cytotec) 200 mcg PO ONETIME PRN PRN Reason: Post Hemorrhage Misoprostol (Cytotec) 25 mcg VAG ONETIME PRN PRN Reason: Cervical Ripening Misoprostol (Cytotec) 25 mcg VAG Q4H PRN PRN Reason: Cervical Ripening Misoprostol (Cytotec) 25 mcg PO Q4H PRN PRN Reason: Cervical Ripening Nalbuphine HCl (Nubain) 10 mg IVPUSH Q1H PRN PRN Reason: Pain (severe 7-10) Sodium Chloride (Saline Flush) 10 ml FLUSH ASDIRECTED PRN PRN Reason: Keep Vein Open Sodium Chloride (Saline Flush) 2.5 ml FLUSH ASDIRECTED PRN PRN Reason: Keep Vein Open Sodium Chloride (Normal Saline) 10 ml IV ASDIRECTED PRN PRN Reason: IV Use Sterile Water (Sterile Water For Irrigation) 1,000 ml IRR ASDIRECTED PRN PRN Reason: delivery Terbutaline Sulfate (Brethine) 0.25 mg SUBCUT ASDIRECTED PRN PRN Reason: Tacysystole - Interaction Infant Disposition, : [place] in Room with Family Infant Interaction: Holding Infant Feeding: Breastfed Infant; Nursed Well, Continues to Breastfeed, Encouraged to Breastfeed Support Person: - Recovery Exam Fundal Tone: Firm Fundal Level: At Umbilicus Fundal Placement: Midline Lochia Amount: Moderate Lochia Color: Rubra/Red Perineum Description: Intact, Minimal Bruising/Swelling Episiotomy/Laceration: Approximated Bladder Status: Voiding Urinary Elimination: Voided - Exam General: Alert, Oriented, Cooperative, No Acute Distress HEENT: Pupils Equal, Mucous Membr. Moist/[place] Neck: Supple Lungs: Clear to Auscultation, Normal Respiratory Effort Cardiovascular: Regular Rate, Regular Rhythm GI/Abdominal Exam: Normal Bowel Sounds, Soft, Non-Tender, No Organomegaly, No Distention Extremities: Normal Inspection, Normal Range of Motion, Non-Tender, No Pedal Edema, Normal Capillary Refill Skin: Warm, Dry, Intact Wound/Incisions: No Drainage Neurological: No New Focal Deficit Psy/Mental Status: Alert, Normal Affect, Normal Mood - Problem List & Annotations (1) (normal spontaneous vaginal delivery) SNOMED Code(s): 61468118, 624857463 Code(s): O80 - ENCOUNTER FOR FULL-TERM UNCOMPLICATED DELIVERY Status: Acute Priority: High Current Visit: Yes (2) Lactating mother SNOMED Code(s): 539248080, 195303826 Code(s): Z39.1 - ENCOUNTER FOR CARE AND EXAMINATION OF LACTATING MOTHER Status: Acute Priority: High Current Visit: Yes - Problem List Review Problem List Initiated/Reviewed/Updated: Yes - My Orders Last 24 Hours: My Active Orders 08/26/20 14:15 Patient Status [ADT] Routine May Shower [RC] ASDIRECTED Up ad Jelly [RC] ASDIRECTED Vital Signs [RC] PER UNIT ROUTINE Acetaminophen [Tylenol Extra Strength] 1,000 mg PO Q4H PRN Acetaminophen [Tylenol Extra Strength] 500 mg PO Q4H PRN Benzocaine/Menthol [Dermoplast Pain Relief 20%-0.5% [place]] 78 gm TOP ASDIRECTED PRN Docusate Sodium [Colace] 100 mg PO BID PRN Ibuprofen [Motrin] 400 mg PO Q4H PRN Ibuprofen [Motrin] 800 mg PO Q6H PRN Lanolin [Lansinoh HPA] See Dose Instructions TOP ASDIRECTED PRN bisacodyL [Dulcolax] 10 mg RECTAL ONETIME PRN oxyCODONE 5 mg PO Q2H PRN witch Lauren [Tucks] 1 pad TOP ASDIRECTED PRN Assess Lochia [WOMSER] Per Unit Routine Assess Uterine Involution [WOMSER] Per Unit Routine Ice Therapy [OM.PC] Per Unit Routine Perineal Care [OM.PC] Per Unit Routine Peripheral IV Discontinue [OM.PC] Routine Sitz Bath [OM.PC] Per Unit Routine Resuscitation Status Routine 08/26/20 Dinner Regular Diet [DIET] - Plan Plan:: Continue in-patient to unit s/p uncomplicated of post-dates NBF following AROM IOL. GBS positive. Ax: Sulfa drugs. Continue to ambulate 3-5 times per day. Continue to eat, hydrate, void, EBF independently. Plan to EBF, may consult health consultant if needed or desired. CBC with auto diff unremarkable, consistent with course. Dr. Simmons notified and agreeable with POC.
[2020-08-27 08:26] VITALS: BP 130/67; PULSE 76
--- NOTE | 2020-08-27 15:00 | PCM.DCSUM1 ---
Discharge Summary - Hospital Course Free Text/Narrative:: Discharge home with baby. Follow up in the clinic in 6 weeks for routine visit; sooner, if needed. Diagnosis: Stroke: No Modified Idris Scale: No Symptoms at All Modified Idris Scale Score: 0 - Discharge Data Discharge Date: 08/27/20 Discharge Disposition: Home, Self-Care 01 Condition: Good - Referral to Home Health Primary Care Physician: Bentley Simmons MD - Patient Instructions Diet: Regular Diet as Tolerated, Drink 8-10+ Glasses/Day Activity: As Tolerated, No Strenuous Activities, Rest and Relax Today Driving: May Drive Today Showering/Bathing: May Shower Notify Provider of: Fever, Increased Pain, Swelling and Redness, Drainage, Nausea and/or Vomiting - Discharge Plan *PRESCRIPTION DRUG MONITORING PROGRAM REVIEWED*: Not Applicable *COPY OF PRESCRIPTION DRUG MONITORING REPORT IN PATIENT CHELLE: Not Applicable Prescriptions/Med Rec: Ibuprofen [Motrin] 800 mg PO Q6H PRN #90 tablet PRN Reason: Pain Home Medications: Home Meds Mv-Mn/Iron/FA/Herbal/Digestive [ One Tablet] 1 tab PO DAILY 04/05/17 [History] L.acidoph,Paracasei, B.lactis [Probiotic] 1 cap PO DAILY 05/07/18 [History] Ibuprofen [Motrin] 800 mg PO Q6H PRN #90 tablet 08/27/20 [Rx] Oxygen Therapy Mode: Room Air Referrals: Homa Smith CNM [Mid-] - 10/03/20 9:30 am (Follow up with Altagracia Smith CNM on October 03 at 09:30am.) - Discharge Summary/Plan Comment DC Time >30 min.: Yes - General Info Date of Service: 08/27/20 Admission Dx/Problem (Free Text: Patient Status Order with Admit Dx/Problem 08/26/20 05:43 Patient Status [ADT] Routine Admission Diagnosis/Problem Admission Diagnosis/Problem 08/26/20 07:47 Malinda is a 25 yo PPD 0 S/P uncomplicated of viable post-dates NBF at 41+0 weeks gestation (MARSHALL(LMP) 08/19/2020) following elective (now post-dates) AROM IOL. O pos, Ab screen neg, RI, GBS positive. Ax: Sulfa drugs. GBS prophylactic antibiotics not administered due to patient declining, no other exacerbating risk factors, intrapartum VSS, afebrile, Tmax 98.6 F, maternal HR 80s-90s, FHR 130s-150s, AROMd ~6 hrs 5 min, clear, non-odorous fluid. VSS, afebrile. easily and without issues, LGA, glucose monitoring continued. Eating, hydrating, ambulating, and urinating independently and without issue. 1st degree perineal laceration noted, not repaired, declines inspection today. Uterus firm, @U. Moderate rubra lochia, few small clots. Mild to moderate uterine cramping somewhat relieved with ibuprofen and acetaminophen. H/O obesity (1-hr GTT not collected, declined); insufficient care between 17-33 weeks (due to COVID per patient report); GBS positive (declined prophylaxis). Patient has no other questions or concerns at this time. Functional Status: Reports: Pain Controlled, Tolerating Diet, Ambulating, Urinating - Review of Systems General: Reports: No Symptoms HEENT: Reports: No Symptoms Pulmonary: Reports: No Symptoms Cardiovascular: Reports: No Symptoms Gastrointestinal: Reports: No Symptoms Genitourinary: Reports: No Symptoms Musculoskeletal: Reports: No Symptoms Skin: Reports: No Symptoms Neurological: Reports: No Symptoms Psychiatric: Reports: No Symptoms - Patient Data Vitals - Most Recent: Last Vital Signs Temp 97.7 F 08/27/20 08:25 Pulse 76 08/27/20 08:25 Resp 18 08/27/20 08:25 BP 130/67 08/27/20 08:25 Pulse Ox 98 08/27/20 08:25 Weight - Most Recent: 276 lb 3 oz Lab Results - Last 24 hrs: Laboratory Results - last 24 hr 08/27/20 Range/Units 07:00 WBC 11.87 H (4.0-11.0) K/uL RBC 3.78 L (4.30-5.90) M/uL Hgb 10.8 L (12.0-16.0) g/dL Hct 32.9 L (36.0-46.0) % MCV 87.0 (80.0-98.0) fL MCH 28.6 (27.0-32.0) pg MCHC 32.8 (31.0-37.0) g/dL RDW Std Deviation 51.7 (28.0-62.0) fl RDW Coeff of Leoncio 16 H (11.0-15.0) % Plt Count 237 (150-400) K/uL MPV 9.40 (7.40-12.00) fL Neut % (Auto) 65.6 (48.0-80.0) % Lymph % (Auto) 25.1 (16.0-40.0) % Brooke % (Auto) 7.8 (0.0-15.0) % Eos % (Auto) 1.3 (0.0-7.0) % Baso % (Auto) 0.2 (0.0-1.5) % Neut # (Auto) 7.8 H (1.4-5.7) K/uL Lymph # (Auto) 3.0 H (0.6-2.4) K/uL Brooke # (Auto) 0.9 H (0.0-0.8) K/uL Eos # (Auto) 0.2 (0.0-0.7) K/uL Baso # (Auto) 0.0 (0.0-0.1) K/uL Nucleated RBC % 0.0 /100WBC Nucleated RBCs # 0 K/uL Med Orders - Current: Current Medications Acetaminophen (Tylenol Extra Strength) 500 mg PO Q4H PRN PRN Reason: Pain Acetaminophen (Tylenol Extra Strength) 1,000 mg PO Q4H PRN PRN Reason: Pain Benzocaine/Menthol (Dermoplast Pain Relief 20%-0.5% [place]) 78 gm TOP ASDIRECTED PRN PRN Reason: Perineal Comfort Measure Bisacodyl (Dulcolax) 10 mg RECTAL ONETIME PRN PRN Reason: Constipation Docusate Sodium (Colace) 100 mg PO BID PRN PRN Reason: Constipation Emollient Ointment (Lansinoh Hpa) 0 gm TOP ASDIRECTED PRN PRN Reason: Sore Nipples Ibuprofen (Motrin) 400 mg PO Q4H PRN PRN Reason: Pain Ibuprofen (Motrin) 800 mg PO Q6H PRN PRN Reason: Pain Last Admin: 08/27/20 09:30 Dose: 800 mg Documented by: Oxycodone HCl (Oxycodone) 5 mg PO Q2H PRN PRN Reason: Pain Witch Lauren (Tucks) 1 pad TOP ASDIRECTED PRN PRN Reason: comfort care Discontinued Medications Butorphanol Tartrate (Stadol) 1 mg IVPUSH Q1H PRN PRN Reason: Pain Carboprost Tromethamine (Hemabate Ds) 250 mcg IM ASDIRECTED PRN PRN Reason: Post Hemorrhage Oxytocin/Sodium Chloride (Oxytocin 30 Unit/500 Ml-Ns) 30 unit in 500 mls @ 999 mls/hr IV TITRATE ANGIE Last Admin: 08/26/20 13:21 Dose: 999 mls/hr Documented by: Tranexamic Acid 1,000 mg/ (Sodium Chloride) 110 mls @ 660 mls/hr IV ONETIME PRN PRN Reason: Bleeding Ampicillin Sodium 2 gm/ Sodium (Chloride) 100 mls @ 200 mls/hr IV ONETIME ONE Stop: 08/26/20 06:12 Last Admin: 08/26/20 07:57 Dose: Not Given Documented by: Lactated Ringer's (Ringers, Lactated) 1,000 mls @ 150 mls/hr IV ASDIRECTED ANGIE Ampicillin Sodium 1 gm/ Sodium (Chloride) 50 mls @ 100 mls/hr IV Q4H [facility] Last Admin: 08/26/20 14:00 Dose: Not Given Documented by: Oxytocin/Sodium Chloride (Oxytocin 30 Unit/500 Ml-Ns) 30 unit in 500 mls @ 2 mls/hr IV TITRATE [facility]; Protocol Oxytocin/Sodium Chloride (Oxytocin 30 Unit/500 Ml-Ns) 30 unit in 500 mls @ 2 mls/hr IV TITRATE [facility]; Protocol Lidocaine HCl (Xylocaine 1%) 50 ml INJECT ONETIME PRN PRN Reason: Laceration repair Methylergonovine Maleate (Methergine) 0.2 mg IM ASDIRECTED PRN PRN Reason: Post Hemorrhage Misoprostol (Cytotec) 200 mcg PO ONETIME PRN PRN Reason: Post Hemorrhage Misoprostol (Cytotec) 25 mcg VAG ONETIME PRN PRN Reason: Cervical Ripening Misoprostol (Cytotec) 25 mcg VAG Q4H PRN PRN Reason: Cervical Ripening Misoprostol (Cytotec) 25 mcg PO Q4H PRN PRN Reason: Cervical Ripening Nalbuphine HCl (Nubain) 10 mg IVPUSH Q1H PRN PRN Reason: Pain (severe 7-10) Sodium Chloride (Saline Flush) 10 ml FLUSH ASDIRECTED PRN PRN Reason: Keep Vein Open Sodium Chloride (Saline Flush) 2.5 ml FLUSH ASDIRECTED PRN PRN Reason: Keep Vein Open Sodium Chloride (Normal Saline) 10 ml IV ASDIRECTED PRN PRN Reason: IV Use Sterile Water (Sterile Water For Irrigation) 1,000 ml IRR ASDIRECTED PRN PRN Reason: delivery Terbutaline Sulfate (Brethine) 0.25 mg SUBCUT ASDIRECTED PRN PRN Reason: Tacysystole - Exam General: Reports: Alert, Oriented, Cooperative, No Acute Distress Lungs: Reports: Normal Respiratory Effort Cardiovascular: Reports: Regular Rate, Regular Rhythm GI/Abdominal Exam: Soft, Non-Tender (Female) Exam: Deferred Rectal (Female) Exam: Deferred Back Exam: Reports: Normal Inspection, Full Range of Motion Extremities: Normal Inspection, Normal Range of Motion, Non-Tender, Normal Capillary Refill Skin: Reports: Warm, Dry, Intact Neurological: Reports: No New Focal Deficit, Normal Speech, Normal Tone, Sensation Intact Psy/Mental Status: Reports: Alert, Normal Affect, Normal Mood
== END 2020-08-27 16:00 | disposition home or self-care (01) | DRG 560 ==
LOC: MW.OBCHECK 05:10 → MW.OB 05:15 → MW.OBCHECK 13:44 → MW.OB 13:47 → OBSVTOIN 14:15 → MW.OB 18:07
PROVIDERS: ADMIT Obstetrics & Gynecology; ATTEND Obstetrics & Gynecology
PROC: 10E0XZZ Delivery of Products of Conception, External Approach (ICD-10-PCS; principal; 2020-08-26)
PROC: 10907ZC Drainage of Amniotic Fluid, Therapeutic from Products of Conception, Via Natural or Artificial Opening (ICD-10-PCS; 2020-08-26)
PROC: 0HQ9XZZ Repair Perineum Skin, External Approach (ICD-10-PCS; 2020-08-26)
DX: O48.0 Post-term pregnancy (principal); O99.824 Streptococcus B carrier state complicating childbirth; Z3A.41 41 weeks gestation of pregnancy; Z37.0 Single live birth; O70.0 First degree perineal laceration during delivery; O69.1XX0 Labor and delivery complicated by cord around neck, with compression, not applicable or unspecified; O77.0 Labor and delivery complicated by meconium in amniotic fluid; O99.214 Obesity complicating childbirth; E66.9 Obesity, unspecified
CPT/HCPCS: 36415; 59025; 59409; 82947; 85025; 85027; 86592; 86850; 86900; 86901; A9270-GY; J2590